=== PATIENT | male | born 1990 | race African-American/Black ===

== ENCOUNTER 2017-07-17 08:09 | Emergency (ER) | payer MEDICAID ==
[~2017-07-17] VITALS: Ht 182.9 cm; Wt 69.0 kg
[2017-07-17] MEDS ORDERED: ONDANSETRON HCL 4MG/2ML VIAL IV ONE (11:00)
[2017-07-17] MEDS ORDERED: SODIUM CHLORIDE 0.9% 1,000 ML IV ONE (11:00)
[2017-07-17 12:15] LABS: CHLORIDE 103 mEq/L (98-107)
[2017-07-17 12:21] LABS: BASOPHILS % 0.9 % (0.0-2.0); EOSINOPHILS % 1.3 % (0.0-5.0); HEMATOCRIT. 41.9 % (42.0-52.0); HEMOGLOBIN. 14.4 g/dL (14.0-18.0); LYMPHOCYTES % 24.2 % (20.0-50.0); MEAN CORPUSCULAR HEMOGLOBIN 30.8 pg (28.0-32.0); MEAN CORPUSCULAR VOLUME 89.4 fL (80.0-94.0); MEAN PLATELET VOLUME 7.6 fl (7.4-10.4); MONOCYTES % 19.5 % (2.0-8.0); NEUTROPHILS % 54.1 % (40.0-76.0); PLATELET 274 x1000/uL (130-400); RED BLOOD CELL COUNT 4.69 mill/uL (4.7-6.1); RED CELL DISTRIBUTION WIDTH 11.8 % (11.6-14.6)
[2017-07-17 12:23] LABS: CARBON DIOXIDE 23 mEq/L (21-32)
[2017-07-17 12:32] LABS: CLARITY URINE CLOUDY (CLEAR); COLOR URINE DARK YELLOW (YELLOW); GLUCOSE URINE NEGATIVE (NEGATIVE); KETONES URINE TRACE (NEGATIVE); LEUKOCYTE ESTERASE URINE NEGATIVE (NEGATIVE); NITRITE URINE NEGATIVE (NEGATIVE); OCCULT BLOOD URINE NEGATIVE (NEGATIVE); PH URINE 5.5 (4.5-8.0); PROTEIN URINE 2+ (NEGATIVE); SPECIFIC GRAVITY URINE 1.031 (1.005-1.030)
[2017-07-17 15:15] VITALS: BP 101/63
[2017-07-22 04:17] LABS: OVA & PARASITE EXAM Final report (.)
== END 2017-07-17 15:46 | disposition home or self-care (01) ==
LOC: ER 08:36
DX: R19.7 Diarrhea, unspecified (principal)
CPT/HCPCS: 36415; 80053; 81001; 82270; 85025; 87015; 87045; 87177; 87209; 87427; 87493; 89055; 96361; 96374; 99285; J2405; J7030; Z7610

== ENCOUNTER 2018-07-08 23:20 | Emergency (ER) | payer MEDICAID, BC ==
[~2018-07-08] VITALS: Ht 182.9 cm; Wt 74.0 kg
[2018-07-09 01:30] VITALS: BP 109/75
== END 2018-07-09 03:46 | disposition home or self-care (01) ==
LOC: ER 23:20
DX: R22.1 Localized swelling, mass and lump, neck (principal)
CPT/HCPCS: 99281